=== PATIENT | female | born 1965 | race African-American/Black ===

== ENCOUNTER 2017-07-13 22:04 | Emergency (ER) | payer OTHER ==
[2017-07-13 22:19] VITALS: TEMP 98.3; BMI 28.5
--- NOTE | 2017-07-13 22:49 | PDOC ---
Attending Attestation - Resident Resident Name: Mireya Garciaica - ED Attending Attestation I have performed the following: I have examined & evaluated the patient, The case was reviewed & discussed with the resident, I agree w/resident's findings & plan, Exceptions are as noted - HPI HPI: 07/13/17 22:59 52 yo female has felt palpitations after starting a new BP med on Sat. Her symptoms started after that. She denies any chest pain or shortness of breath 07/14/17 00:27 - Physicial Exam PE: 07/14/17 00:27 head ncat neck supple,no jvd,no bruits lungs cta b/l cvs [id number] abd nontender ext no e/c/c neuro axox3 , ambulatory skin warm,dry psych appropriate - Medical Decision Making 07/14/17 00:29 labs are unremarkabe initially ekg was tachy@ 108 but the pt pulse is now in the 80s plan followup with PCP to change her new BP medication 07/14/17 00:48 repeat in=296/81 p=79 pulse yx=130 on air
--- NOTE | 2017-07-13 22:51 | PDOC ---
History of Present Illness - General Chief Complaint: Palpitations Stated Complaint: FATIGUE Time Seen by Provider: 07/13/17 22:42 History Source: Patient - History of Present Illness Initial Comments: 07/13/17 23:04 Patient is a 52 y.o. female with a PMH of HTN c/o acute onset of lightheadedness and palpitations while watching a movie today. Patient endorses some intermittent nausea but denies chest pain, dyspnea, nausea/ vomiting. Patient additionally notes that she had a recent medication change including an increase in her Losartan last week. Patient notes 2 hospitalizations for dehydration over the last 2-3 years and states she has limited fluid PO intake today. Allergy: EVELYN Inhibitors - h/o angioedema Surgical: none Social: denies cigarettes, denies alcohol, denies recreational drugs PMD: Floyd Past History - Past Medical History Allergies/Adverse Reactions: Allergies Allergy/AdvReac Type Severity Reaction Status Date / Time EVELYN Inhibitors Allergy Verified 07/13/17 22:16 Home Medications: Ambulatory Orders Ferrous Sulfate [Feosol] 325 mg PO DAILY 07/13/17 Losartan Potassium [Cozaar -] 50 mg PO DAILY 07/13/17 - Suicide/Smoking/Psychosocial Hx Smoking History: Never smoked *Physical Exam - Vital Signs Last Vital Signs Temp Pulse Resp BP Pulse Ox 98.3 F 163/86 07/13/17 22:17 07/13/17 22:17 - Physical Exam Comments: 07/16/17 17:35 GENERAL: Awake, alert, moving all 4 extremities HEAD: no lacerations, lesions, EYES: PERRLA, EOMI, sclera anicteric, conjunctiva clear ENT: oropharynx clear without exudates. Moist mucosa NECK: Normal ROM, supple, no lymphadenopathy, JVD, or masses LUNGS: Breath sounds equal, clear to auscultation bilaterally. No wheezes, and no crackles HEART: Regular rate and rhythm, normal S1 and S2, no murmurs, rubs or gallops ABDOMEN: Soft, protuberant nontender, normoactive bowel sounds. No guarding, no rebound. No masses EXTREMITIES: Normal range of motion, no edema. No clubbing or cyanosis. BACK: No midline spinal tenderness in cervical/thoracic/lumbar region NEUROLOGICAL: Normal speech, cranial nerves intact, intact DTR, non-ataxic, non- antalgic gait, cerebellar finger to nose intact SKIN: Warm, Dry, normal turgor, no rashes or lesions noted. ED Treatment Course - LABORATORY CBC & Chemistry Diagram: 07/13/17 23:20 07/13/17 23:20 Medical Decision Making - Medical Decision Making 07/16/17 10:52 Patient 52 y.o. female presents c/o palpitations w/o chest pain, dyspnea. Vital signs significant for initial tachycardia (HR 108), resolved with 1 L IV NS. Labs unremarkable. Patient counseled to f/u with PMD for re-adjustment of her recently increased Losartan dosage. Discharge vitals: HR 79, BP 156/81, SpO2 100% on RA. Patient discharged home with return precautions. *DC/Admit/Observation/Transfer Diagnosis at time of Disposition: Palpitations - Discharge Dispostion Disposition: HOME Condition at time of disposition: Good Admit: No - Referrals - Patient Instructions Printed Discharge Instructions: DI for Palpitations Additional Instructions: Please make an appointment to see your primary care doctor in the next 3-5 days. Increase your fluid intake to prevent dehydration. Return to the Emergency Department for any new/worsening/concerning symptoms. - Post Discharge Activity Forms/Work/School Notes: Back to Work
[2017-07-13] MEDS ORDERED: SODIUM CHLORIDE 0.9% 1000 ML INFUS.BAG IV ONE (23:01)
[2017-07-13 23:26] LABS: BASO % 0.8 % (0-2.0); EOS % 4.2 % (0-4.5); HEMATOCRIT 41.5 % (32.4-45.2); HEMOGLOBIN 13.6 GM/dL (10.7-15.3); LYMPH % 20.5 % (8-40); MCHC 32.6 g/dl (32.0-36.0); MEAN CELL VOLUME 85.9 fl (80-96); MEAN PLT VOLUME 8.7 fl (7.5-11.1); MONO % 7.5 % (3.8-10.2); PLATELET COUNT 294 K/MM3 (134-434); RBC 4.83 M/mm3 (3.60-5.2); RDW 13.9 % (11.6-15.6); WHITE BLOOD COUNT 7.1 K/mm3 (4.0-10.0)
[2017-07-13 23:55] LABS: ALBUMIN 3.8 g/dl (3.4-5.0); ANION GAP 6 (8-16); BILIRUBIN,TOTAL 0.3 mg/dL (0.2-1.0); BLOOD UREA NITROGEN 11 mg/dL (7-18); CALCIUM 9.3 mg/dL (8.5-10.1); CHLORIDE 107 mmol/L (98-107); CO2 27 mmol/L (21-32); GLUCOSE,RANDOM 100 mg/dL (74-106); POTASSIUM 4.1 mmol/L (3.5-5.1); SGOT/AST 15 U/L (15-37); SGPT/ALT 23 U/L (12-78); SODIUM 140 mmol/L (136-145); TOT PROT 8.1 g/dl (6.4-8.2)
[2017-07-13 23:58] LABS: ALK PHOS 94 U/L (45-117)
[2017-07-14 01:15] VITALS: BP 156/91; PULSE 78
--- NOTE | 2017-07-15 11:29 | EKG ---
Test Reason : Blood Pressure : / mmHG Vent. Rate : 108 BPM Atrial Rate : 108 BPM P-R Int : 134 ms QRS Dur : 080 ms QT Int : 344 ms P-R-T Axes : 066 036 052 degrees QTc Int : 460 ms SINUS TACHYCARDIA OTHERWISE NORMAL ECG NO PREVIOUS ECGS AVAILABLE Confirmed by ROSEY BORGES, CRESCENCIO ([id number]) on 07/15/2017 11:28:54 AM Referred By: Confirmed By:CRESCENCIO CURRIE MD
== END 2017-07-14 01:19 | disposition home or self-care (01) ==
LOC: JER 22:04
DX: R00.2 Palpitations (principal); I10 Essential (primary) hypertension
CPT/HCPCS: 36415; 71046-TC-FY; 80053; 82550; 84484; 84703; 85025; 93005; 93010; 99281-25; 99283-25